=== PATIENT | female | born 1975 | race Caucasian/White ===

== ENCOUNTER 2016-04-01 19:33 | Emergency (ER) | payer BC ==
[2016-04-01 20:38] VITALS: BP 126/90
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
== END 2016-04-02 00:39 | disposition left against medical advice (07) ==
LOC: ER 19:33
DX: Z53.9 Procedure and treatment not carried out, unspecified reason (principal); M79.621 Pain in right upper arm; Y04.8XXA Assault by other bodily force, initial encounter
CPT/HCPCS: 72050; 99281